=== PATIENT | female | born 1945 | race Caucasian/White ===

== ENCOUNTER 2017-04-04 21:15 | Emergency (ER) | payer OTHER, MEDICAID ==
[~2017-04-04] VITALS: Ht 172.7 cm; Wt 117.9 kg
--- NOTE | 2017-04-04 21:21 | NUR ---
Patient to ER bed 5 to gown for evaluation. Side rails up. Report given to Zane HOLT.
[2017-04-04 21:23] VITALS: BP_SYST 152
--- NOTE | 2017-04-04 21:36 | NUR ---
Patient AAOx4, non-ambulatory. Patient states she had a high systolic blood pressure "in 170s" prior to ER visit, also states having a headache with pain scale 5/10 and onset of nausea. Patient states pain in head is non-radiating and has a sharp sensation. Patient denies vision difficulties, denies vomiting at this time. Patient denies chest pain and SOB at this time. Patient denies any other complaints.
--- NOTE | 2017-04-04 21:36 | NUR ---
Reassigned to Sriram HOLT
[2017-04-04] MEDS ORDERED: KETOROLAC TROMETHAMINE 30 MG VIAL IVP ONE (21:45)
[2017-04-04] MEDS ORDERED: NACL 0.9% 1,000 ML IV ONE (21:45)
[2017-04-04] MEDS ORDERED: ONDANSETRON HCL 4 MG/2 ML VIAL IVP ONE (21:45)
--- NOTE | 2017-04-04 21:50 | NUR ---
DENNISE Benitez at bedside examining patient.
--- NOTE | 2017-04-04 22:08 | NUR ---
# 20 gauge angiocath placed to right hand. Use of asceptic technique. Blood return noted. Blood for lab drawn from site. Flushed with 10 cc of normal saline. No evidence of infiltration noted. Patient tolerated well.
--- NOTE | 2017-04-04 22:30 | NUR ---
Patient and famiy state they cannot remember the list of medications the patient takes at home. Will endorse medication reconcilition to other nurse if patient is admitted to hospital.
[2017-04-04 22:44] LABS: BILIRUBIN,URINE NEGATIVE (NEGATIVE); BLOOD, URINE 1+ (NEGATIVE); CLARITY/URINE CLEAR (CLEAR); COLOR,URINE YELLOW (YELLOW); GLUCOSE,URINE NEGATIVE (NEGATIVE); KETONES,URINE NEGATIVE (NEGATIVE); LEUKOCYTE ESTERASE ,URINE 3+ (NEGATIVE); NITRITE, URINE NEGATIVE (NEGATIVE); PROTEIN URINE NEGATIVE (NEGATIVE); UROBILINOGEN,URINE 0.2 (0.2-1.0)
[2017-04-04 22:52] LABS: BACTERIA,URINE MODERATE /HPF (None Seen); WBC,URINE 50-80 /HPF (0-3)
[2017-04-04] MEDS ORDERED: NITROFURANTOIN MONOHYD/M-CRYST 100 MG CAPSULE PO ONE (23:00)
[2017-04-04 23:07] LABS: EOSINOPHILS # (AUTO) 0.1 K/uL (0.0-0.4); HEMOGLOBIN 12.7 g/dL (12.0-16.0); MONOCYTES # (AUTO) 0.8 K/uL (0.0-1.0); RED BLOOD CELL COUNT(AUTO) 4.55 MIL/uL (4.2-6.2)
[2017-04-04 23:10] LABS: BASOPHILS # (AUTO) 0.1 K/uL (0.0-0.2); BASOPHILS % (AUTO) 1.4 % (0.0-2.0); EOSINOPHILS % (AUTO) 1.3 % (0.0-4.0); HEMATOCRIT 39.3 % (36-48); LYMPHOCYTES # (AUTO) 4.5 K/uL (1.0-5.5); LYMPHOCYTES % (AUTO) 58.4 % (20.5-51.5); MEAN CORPUSCULAR HEMOGLOBIN 28 pg (27-31); MEAN CORPUSCULAR HGB CONC 32 % (32-36); MEAN CORPUSCULAR VOLUME 86 fL (79.0-98.0); MONOCYTES % (AUTO) 10.4 % (1.7-9.3); NEUTROPHILS # (AUTO) 2.2 K/uL (1.8-7.7); NEUTROPHILS % (AUTO) 28.5 % (40.0-70.0); PLATELET COUNT (AUTO) 323 K/uL (130-430); RED CELL DISTRIBUTION WIDTH 12.9 % (9.0-15.0); WHITE BLOOD COUNT (AUTO) 7.7 K/uL (4.8-10.8)
[2017-04-04 23:19] LABS: ANION GAP 6 (5-15); CALCIUM 8.5 mg/dL (8.4-11.0); CHLORIDE 102 mmol/L (98-107); CREATININE 1.11 mg/dL (0.55-1.30); GLUCOSE 217 mg/dL (70-99); POTASSIUM 3.7 mmol/L (3.5-5.1); SODIUM SERUM 137 mmol/L (136-145); UREA NITROGEN, BLOOD 20 mg/dL (8-21)
--- NOTE | 2017-04-04 23:21 | NUR ---
Patient stable, resting in bed. No signs of distress noted. Vital signs within therapeutic range.
[2017-04-04 23:24] LABS: ALANINE AMINOTRANSFERASE 14 U/L (12-78); ALBUMIN 3.1 g/dL (3.4-4.8); ASPARTATE AMINOTRANSFERASE 14 U/L (10-37); TOTAL BILIRUBIN 0.2 mg/dL (0.0-1.0)
[2017-04-04 23:50] VITALS: BP_SYST 152
--- NOTE | 2017-04-04 23:50 | NUR ---
Patient given written and verbal discharge instructions and verbalizes understanding. ER MD discussed with patient the results and treatment provided. Patient in stable condition. ID arm band removed. IV catheter removed intact and dressing applied, no active bleeding. Rx of macrobid given. Patient educated on pain management and to follow up with PMD. Pain Scale 0/10. Opportunity for questions provided and answered.
== END 2017-04-04 23:50 | disposition home or self-care (01) ==
LOC: SED 21:15
DX: I10 Essential (primary) hypertension (principal); N39.0 Urinary tract infection, site not specified; R51 Headache; E11.9 Type 2 diabetes mellitus without complications; Z88.6 Allergy status to analgesic agent
CPT/HCPCS: 36415; 71010; 80053; 81000; 83880; 84484; 85025; 87086; 87186; 93005; 96361; 96374; 96375; 99285; J1885; J2405; J7030

== ENCOUNTER 2018-01-14 21:46 | Emergency (ER) | payer OTHER, MEDICAID ==
[~2018-01-14] VITALS: Ht 167.6 cm; Wt 117.9 kg
[2018-01-14 21:52] VITALS: BP_SYST 183
[2018-01-14] MEDS ORDERED: LISINOPRIL 10 MG TABLET (PRINIVIL) PO ONE (23:45)
[2018-01-14] MEDS ORDERED: ONDANSETRON 4 MG ODT TAB PO ONE (23:45)
[2018-01-14 23:46] LABS: BILIRUBIN,URINE NEGATIVE (NEGATIVE); BLOOD, URINE 1+ (NEGATIVE); CLARITY/URINE CLEAR (CLEAR); COLOR,URINE YELLOW (YELLOW); GLUCOSE,URINE NEGATIVE (NEGATIVE); KETONES,URINE NEGATIVE (NEGATIVE); LEUKOCYTE ESTERASE ,URINE 1+ (NEGATIVE); NITRITE, URINE NEGATIVE (NEGATIVE); PH,URINE 7.5 (5.0-8.0); PROTEIN URINE 2+ (NEGATIVE); UROBILINOGEN,URINE 0.2 (0.2-1.0)
[2018-01-14 23:48] LABS: BASOPHILS # (AUTO) 0.1 K/uL (0.0-0.2); BASOPHILS % (AUTO) 1.6 % (0.0-2.0); EOSINOPHILS # (AUTO) 0.1 K/uL (0.0-0.4); EOSINOPHILS % (AUTO) 0.9 % (0.0-4.0); HEMATOCRIT 38.1 % (36-48); HEMOGLOBIN 12.7 g/dL (12.0-16.0); LYMPHOCYTES # (AUTO) 2.6 K/uL (1.0-5.5); LYMPHOCYTES % (AUTO) 36.8 % (20.5-51.5); MEAN CORPUSCULAR HEMOGLOBIN 29 pg (27-31); MEAN CORPUSCULAR HGB CONC 33 % (32-36); MEAN CORPUSCULAR VOLUME 85 fL (79.0-98.0); MONOCYTES # (AUTO) 0.5 K/uL (0.0-1.0); MONOCYTES % (AUTO) 6.9 % (1.7-9.3); NEUTROPHILS # (AUTO) 3.8 K/uL (1.8-7.7); NEUTROPHILS % (AUTO) 53.8 % (40.0-70.0); PLATELET COUNT (AUTO) 390 K/uL (130-430); RED BLOOD CELL COUNT(AUTO) 4.47 MIL/uL (4.2-6.2); RED CELL DISTRIBUTION WIDTH 13.4 % (9.0-15.0); WHITE BLOOD COUNT (AUTO) 7.1 K/uL (4.8-10.8)
[2018-01-14 23:52] LABS: ANION GAP 5 (5-15); CALCIUM 8.7 mg/dL (8.4-11.0); CHLORIDE 101 mmol/L (98-107); CREATININE 0.81 mg/dL (0.55-1.30); GLUCOSE 112 mg/dL (70-99); SODIUM SERUM 135 mmol/L (136-145); UREA NITROGEN, BLOOD 20 mg/dL (8-21)
[2018-01-14 23:57] LABS: ALANINE AMINOTRANSFERASE 13 U/L (12-78); ALBUMIN 3.2 g/dL (3.4-4.8); ASPARTATE AMINOTRANSFERASE 17 U/L (10-37); TOTAL BILIRUBIN 0.2 mg/dL (0.0-1.0)
[2018-01-15 00:05] LABS: BACTERIA,URINE MODERATE /HPF (None Seen)
[2018-01-15 00:05] LABS: PROTHROMBIN TIME 10.2 SECS (9.5-12.5)
[2018-01-15 00:06] LABS: URINE AMORPHOUS PHOSPHATES 1+ /HPF (None Seen)
[2018-01-15 01:03] VITALS: BP_SYST 144
== END 2018-01-15 01:03 | disposition home or self-care (01) ==
LOC: SED 21:46
DX: N39.0 Urinary tract infection, site not specified (principal); R11.2 Nausea with vomiting, unspecified; I10 Essential (primary) hypertension; R51 Headache; E11.9 Type 2 diabetes mellitus without complications; R42 Dizziness and giddiness; M19.90 Unspecified osteoarthritis, unspecified site
CPT/HCPCS: 36415; 71045; 80053; 81000; 83880; 84484; 85025; 85610; 85730; 87086; 93005; 99285; Q0162

== ENCOUNTER 2018-05-19 19:20 | Inpatient (IN) | payer OTHER, MEDICAID ==
[~2018-05-19] VITALS: Ht 165.1 cm; Wt 103.9 kg
[2018-05-19 19:25] VITALS: BP_SYST 157
[2018-05-19 20:50] LABS: BILIRUBIN,URINE NEGATIVE (NEGATIVE); BLOOD, URINE 2+ (NEGATIVE); CLARITY/URINE CLEAR (CLEAR); COLOR,URINE YELLOW (YELLOW); GLUCOSE,URINE NEGATIVE (NEGATIVE); KETONES,URINE NEGATIVE (NEGATIVE); LEUKOCYTE ESTERASE ,URINE 1+ (NEGATIVE); NITRITE, URINE NEGATIVE (NEGATIVE); PROTEIN URINE 1+ (NEGATIVE); UROBILINOGEN,URINE 0.2 (0.2-1.0)
[2018-05-19 20:51] LABS: BASOPHILS # (AUTO) 0.2 K/uL (0.0-0.2); BASOPHILS % (AUTO) 2.2 % (0.0-2.0); EOSINOPHILS % (AUTO) 0.2 % (0.0-4.0); HEMATOCRIT 38.2 % (36-48); HEMOGLOBIN 12.7 g/dL (12.0-16.0); LYMPHOCYTES # (AUTO) 2.4 K/uL (1.0-5.5); LYMPHOCYTES % (AUTO) 22.6 % (20.5-51.5); MEAN CORPUSCULAR HEMOGLOBIN 27 pg (27-31); MEAN CORPUSCULAR HGB CONC 33 % (32-36); MEAN CORPUSCULAR VOLUME 82 fL (79.0-98.0); MONOCYTES # (AUTO) 1.2 K/uL (0.0-1.0); MONOCYTES % (AUTO) 11.4 % (1.7-9.3); NEUTROPHILS # (AUTO) 6.6 K/uL (1.8-7.7); NEUTROPHILS % (AUTO) 63.6 % (40.0-70.0); PLATELET COUNT (AUTO) 379 K/uL (130-430); RED BLOOD CELL COUNT(AUTO) 4.64 MIL/uL (4.2-6.2); RED CELL DISTRIBUTION WIDTH 13.1 % (9.0-15.0); WHITE BLOOD COUNT (AUTO) 10.4 K/uL (4.8-10.8)
[2018-05-19 21:07] LABS: BACTERIA,URINE FEW /HPF (None Seen); WBC,URINE 20-50 /HPF (0-3)
[2018-05-19 21:09] LABS: ALANINE AMINOTRANSFERASE 9 U/L (12-78); ALBUMIN 2.9 g/dL (3.4-4.8); ANION GAP 8 (5-15); ASPARTATE AMINOTRANSFERASE 16 U/L (10-37); CALCIUM 8.2 mg/dL (8.4-11.0); CHLORIDE 100 mmol/L (98-107); CREATININE 1.36 mg/dL (0.55-1.30); GLUCOSE 162 mg/dL (70-99); LIPASE 54 U/L (73-393); SODIUM SERUM 137 mmol/L (136-145); TOTAL BILIRUBIN 0.4 mg/dL (0.0-1.0); UREA NITROGEN, BLOOD 26 mg/dL (8-21)
[2018-05-19] MEDS ORDERED: KETOROLAC TROMETHAMINE 30 MG VIAL IVP ONE (22:00)
[2018-05-19] MEDS ORDERED: MORPHINE 4 MG/ML INJ. SYRINGE IVP ONE (22:00)
[2018-05-19] MEDS ORDERED: methylPREDNISolone SOD SUCC/PF 62.5 MG/ML VIAL IVP ONE (22:00)
[2018-05-19] MEDS ORDERED: NACL 0.9% 1,000 ML IV ONE (22:00)
[2018-05-19] MEDS ORDERED: cefTRIAXone 1 GM IVPB PREMIX 50 ML IV ONE (22:00)
[2018-05-19 23:27] VITALS: BP_SYST 158
[2018-05-20] VITALS: BP_SYST 160
[2018-05-20] MEDS ORDERED: LEVOFLOXACIN 500 MG/D5W 100 ML IV ONE ×2 (02:40→03:00)
[2018-05-20] MEDS: 0.45% NACL 1,000 ML IV SCH ×4 (02:46→21:01)
[2018-05-20] MEDS: INSULIN REGULAR, HUMAN 100 UNITS/ML, 10 ML VIAL (novoLIN R) SUBCUT PRN ×4 (06:37→22:22)
[2018-05-20 08:00] VITALS: BP_SYST 164
[2018-05-20] MEDS: METOPROLOL SUCCINATE 25 MG TAB.SR.24H (TOPROL XL) PO SCH ×2 (08:20→21:03)
[2018-05-20 12:00] VITALS: BP_SYST 155
[2018-05-20] MEDS ORDERED: PANTOPRAZOLE SODIUM 40 MG TAB PO ONE (13:45)
[2018-05-20] MEDS ORDERED: ONDANSETRON HCL 4 MG/2 ML VIAL IVP PRN (13:45)
[2018-05-20] MEDS ORDERED: cloNIDine HCL 0.2 MG TABLET PO PRN (13:45)
[2018-05-20] MEDS ORDERED: ZOLPIDEM TARTRATE 5 MG TABLET PO PRN (13:45)
[2018-05-20] MEDS ORDERED: DICLOFENAC SODIUM 25 MG TABLET.DR PO ONE (14:00)
[2018-05-20] MEDS ORDERED: GENTAMICIN 100 mg/50 mL NS 50 ML IV ONE (15:30)
[2018-05-20 16:23] VITALS: BP_SYST 164
[2018-05-20] MEDS: INSULIN NPH 100 UNITS/ML 10 ML VIAL SUBCUT SCH (18:20)
[2018-05-20 19:11] VITALS: BP_SYST 160
[2018-05-20 20:15] VITALS: BP_SYST 154
[2018-05-20] MEDS ORDERED: cefTRIAXone 1 GM IVPB PREMIX 50 ML IV SCH (21:00)
[2018-05-20] MEDS: DICLOFENAC SODIUM 25 MG TABLET.DR PO SCH (21:02)
[2018-05-21] VITALS (7 sets, daily range): BP systolic 112–186
[2018-05-21] MEDS: INSULIN NPH 100 UNITS/ML 10 ML VIAL SUBCUT SCH ×2 (06:13→17:07)
[2018-05-21 06:52] LABS: INR 1.1 (0.8-1.2); PROTHROMBIN TIME 10.9 SECS (9.5-12.5)
[2018-05-21 06:54] LABS: ANION GAP 7 (5-15); CALCIUM 8.5 mg/dL (8.4-11.0); CHLORIDE 105 mmol/L (98-107); GLUCOSE 144 mg/dL (70-99); POTASSIUM 3.7 mmol/L (3.5-5.1); SODIUM SERUM 139 mmol/L (136-145); UREA NITROGEN, BLOOD 28 mg/dL (8-21)
[2018-05-21 08:15] LABS: BASOPHILS # (AUTO) 0.1 K/uL (0.0-0.2); BASOPHILS % (AUTO) 0.7 % (0.0-2.0); EOSINOPHILS % (AUTO) 0.4 % (0.0-4.0); HEMOGLOBIN 11.9 g/dL (12.0-16.0); LYMPHOCYTES # (AUTO) 3.8 K/uL (1.0-5.5); LYMPHOCYTES % (AUTO) 31.1 % (20.5-51.5); MEAN CORPUSCULAR HEMOGLOBIN 27 pg (27-31); MEAN CORPUSCULAR HGB CONC 32 % (32-36); MEAN CORPUSCULAR VOLUME 84 fL (79.0-98.0); MONOCYTES # (AUTO) 1.2 K/uL (0.0-1.0); MONOCYTES % (AUTO) 9.7 % (1.7-9.3); NEUTROPHILS % (AUTO) 58.1 % (40.0-70.0); PLATELET COUNT (AUTO) 378 K/uL (130-430); RED BLOOD CELL COUNT(AUTO) 4.41 MIL/uL (4.2-6.2); RED CELL DISTRIBUTION WIDTH 13.3 % (9.0-15.0); WHITE BLOOD COUNT (AUTO) 12.1 K/uL (4.8-10.8)
[2018-05-21] MEDS: METOPROLOL SUCCINATE 25 MG TAB.SR.24H (TOPROL XL) PO SCH ×2 (08:34→20:17)
[2018-05-21] MEDS: PANTOPRAZOLE SODIUM 40 MG TAB PO SCH (09:00)
[2018-05-21] MEDS: DICLOFENAC SODIUM 25 MG TABLET.DR PO SCH ×2 (09:00→20:16)
[2018-05-21] MEDS ORDERED: IOHEXOL 0 ML IV ONE (11:33)
[2018-05-21] MEDS ORDERED: ONDANSETRON HCL 4 MG/2 ML VIAL IVP PRN (12:30)
[2018-05-21] MEDS ORDERED: fentaNYL CITRATE/PF 100 MCG/2 ML AMP IVP PRN ×2 (12:30)
[2018-05-21] MEDS: cloNIDine HCL 0.1 MG TABLET PO PRN ×2 (13:54→16:59)
[2018-05-21] MEDS: PIPERACILLIN/TAZO 4.5GM/DEX-IS 100 ML IV SCH ×2 (15:15→21:02)
[2018-05-21] MEDS: 0.45% NACL 1,000 ML IV SCH (15:16)
[2018-05-21] MEDS: INSULIN REGULAR, HUMAN 100 UNITS/ML, 10 ML VIAL (novoLIN R) SUBCUT PRN ×2 (17:06→21:10)
[2018-05-22] VITALS: BP_SYST 156
[2018-05-22] MEDS: traMADol HCL HCL 50 MG TABLET (ULTRAM) PO PRN ×3 (04:46→22:05)
[2018-05-22] MEDS: PIPERACILLIN/TAZO 4.5GM/DEX-IS 100 ML IV SCH (06:28)
[2018-05-22] MEDS: 0.45% NACL 1,000 ML IV SCH ×2 (06:28→10:51)
[2018-05-22] MEDS: INSULIN REGULAR, HUMAN 100 UNITS/ML, 10 ML VIAL (novoLIN R) SUBCUT PRN ×4 (06:38→21:49)
[2018-05-22] MEDS: INSULIN NPH 100 UNITS/ML 10 ML VIAL SUBCUT SCH ×2 (07:02→17:44)
[2018-05-22 07:20] LABS: BASOPHILS # (AUTO) 0.2 K/uL (0.0-0.2); BASOPHILS % (AUTO) 2.1 % (0.0-2.0); EOSINOPHILS # (AUTO) 0.3 K/uL (0.0-0.4); EOSINOPHILS % (AUTO) 3.6 % (0.0-4.0); HEMATOCRIT 37.7 % (36-48); HEMOGLOBIN 12.4 g/dL (12.0-16.0); LYMPHOCYTES # (AUTO) 2.9 K/uL (1.0-5.5); LYMPHOCYTES % (AUTO) 39.2 % (20.5-51.5); MEAN CORPUSCULAR HEMOGLOBIN 28 pg (27-31); MEAN CORPUSCULAR HGB CONC 33 % (32-36); MEAN CORPUSCULAR VOLUME 84 fL (79.0-98.0); MONOCYTES # (AUTO) 0.9 K/uL (0.0-1.0); MONOCYTES % (AUTO) 12.6 % (1.7-9.3); NEUTROPHILS # (AUTO) 3.2 K/uL (1.8-7.7); NEUTROPHILS % (AUTO) 42.5 % (40.0-70.0); PLATELET COUNT (AUTO) 369 K/uL (130-430); RED BLOOD CELL COUNT(AUTO) 4.48 MIL/uL (4.2-6.2); RED CELL DISTRIBUTION WIDTH 13.3 % (9.0-15.0); WHITE BLOOD COUNT (AUTO) 7.5 K/uL (4.8-10.8)
[2018-05-22 08:06] LABS: ANION GAP 10 (5-15); CALCIUM 8.8 mg/dL (8.4-11.0); CHLORIDE 106 mmol/L (98-107); CREATININE 1.09 mg/dL (0.55-1.30); GLUCOSE 175 mg/dL (70-99); POTASSIUM 3.8 mmol/L (3.5-5.1); SODIUM SERUM 142 mmol/L (136-145); UREA NITROGEN, BLOOD 21 mg/dL (8-21)
[2018-05-22 08:12] LABS: ALANINE AMINOTRANSFERASE 11 U/L (12-78); ALBUMIN 2.3 g/dL (3.4-4.8); ASPARTATE AMINOTRANSFERASE 20 U/L (10-37); TOTAL BILIRUBIN 0.3 mg/dL (0.0-1.0)
[2018-05-22 08:32] VITALS: BP_SYST 142
[2018-05-22] MEDS: PANTOPRAZOLE SODIUM 40 MG TAB PO SCH (09:47)
[2018-05-22] MEDS: DICLOFENAC SODIUM 25 MG TABLET.DR PO SCH ×2 (09:48→21:40)
[2018-05-22] MEDS: METOPROLOL SUCCINATE 25 MG TAB.SR.24H (TOPROL XL) PO SCH ×2 (09:50→21:39)
[2018-05-22 12:30] VITALS: BP_SYST 145
[2018-05-22] MEDS: cefTRIAXone 1 GM IVPB PREMIX 50 ML IV SCH (14:54)
[2018-05-22 16:32] VITALS: BP_SYST 140
[2018-05-22 19:48] VITALS: BP_SYST 137
[2018-05-22 20:25] VITALS: BP_SYST 156
[2018-05-22] MEDS ORDERED: ENOXAPARIN SODIUM 40 MG/0.4 ML SYRINGE SUBCUT SCH (21:00)
[2018-05-23 00:42] VITALS: BP_SYST 136
[2018-05-23] MEDS: INSULIN NPH 100 UNITS/ML 10 ML VIAL SUBCUT SCH (06:28)
[2018-05-23] MEDS: METOPROLOL SUCCINATE 25 MG TAB.SR.24H (TOPROL XL) PO SCH (10:00)
[2018-05-23] MEDS: DICLOFENAC SODIUM 25 MG TABLET.DR PO SCH (10:00)
[2018-05-23] MEDS: PANTOPRAZOLE SODIUM 40 MG TAB PO SCH (10:00)
[2018-05-23] MEDS ORDERED: MIDAZOLAM HCL 5 MG/5 ML VIAL IVP ONE (11:30)
[2018-05-23] MEDS ORDERED: ceFAZolin SODIUM 1 GM VIAL IV ONE (11:30)
[2018-05-23] MEDS ORDERED: WATER FOR IRRIGATION,STERILE 4,000 ML IRRIG.SOLN IR ONE (11:30)
[2018-05-23] MEDS ORDERED: NS 1000 ML IV.SOLN IV ONE (11:30)
[2018-05-23] MEDS ORDERED: PROPOFOL 200MG/ 20ML VIAL (DIPRIVAN) IV ONE (11:30)
[2018-05-23 12:02] VITALS: BP_SYST 149
[2018-05-23] MEDS: INSULIN REGULAR, HUMAN 100 UNITS/ML, 10 ML VIAL (novoLIN R) SUBCUT PRN (12:08)
[2018-05-23] MEDS: cefTRIAXone 1 GM IVPB PREMIX 50 ML IV SCH ×2 (12:10→13:21)
[2018-05-23] MEDS ORDERED: cefTRIAXone 1 GM IVPB PREMIX 50 ML IV ONE ×2 (14:15)
[2018-05-23] MEDS ORDERED: ROCPM1 IV (14:30)
[2018-05-23 14:47] VITALS: BP_SYST 149
[2018-05-23 16:02] VITALS: BP_SYST 173
[2018-05-23 16:11] VITALS: BP_SYST 149; BP_SYST 186
[2018-05-23] MEDS: cloNIDine HCL 0.1 MG TABLET PO PRN (16:49)
[2018-05-24] MEDS ORDERED: cefTRIAXone 2 GM in D5W 50 ML IV SCH (15:00)
== END 2018-05-23 17:10 | disposition home health service (06) | DRG 853 ==
LOC: SED 19:20 → SMU 22:32
PROVIDERS: ADMIT Internal Medicine; ATTEND Internal Medicine
PROC: 0T778DZ Dilation of Left Ureter with Intraluminal Device, Via Natural or Artificial Opening Endoscopic (ICD-10-PCS; 2018-05-19)
PROC: 05HY33Z Insertion of Infusion Device into Upper Vein, Percutaneous Approach (ICD-10-PCS; principal; 2018-05-23)
DX: A41.9 Sepsis, unspecified organism (principal); N17.0 Acute kidney failure with tubular necrosis; N13.6 Pyonephrosis; E11.9 Type 2 diabetes mellitus without complications; I10 Essential (primary) hypertension; M19.90 Unspecified osteoarthritis, unspecified site; E86.0 Dehydration; E66.01 Morbid (severe) obesity due to excess calories; B96.4 Proteus (mirabilis) (morganii) as the cause of diseases classified elsewhere; Z91.048 Other nonmedicinal substance allergy status; Z68.38 Body mass index [BMI] 38.0-38.9, adult; Z88.1 Allergy status to other antibiotic agents; Z90.710 Acquired absence of both cervix and uterus
CPT/HCPCS: 36415; 71045; 76000; 80048; 80053; 81000-TC; 82962; 83690-TC; 84484; 85025; 85610-TC; 87040-TC; 87081; 87086; 87186-TC; 93005; 96365; 96375; 99285; C1751; C1769; C2625; J0690; J0696; J1580; J1650; J1815; J1885; J1956; J2250; J2405; J2543; J2704; J2930; J7030; J7060; Q9967

== ENCOUNTER 2018-08-14 16:52 | Outpatient (CLI) | payer OTHER, MEDICAID ==
[~2018-08-14 16:52] MED LIST: ROCPM1 IV
[2018-08-14 19:48] LABS: POTASSIUM 3.3 mmol/L (3.5-5.1); SODIUM SERUM 143 mmol/L (136-145)
[2018-08-14 19:49] LABS: ANION GAP 5 (5-15); CALCIUM 8.7 mg/dL (8.4-11.0); CHLORIDE 105 mmol/L (98-107); CREATININE 1.01 mg/dL (0.55-1.30); GLUCOSE 112 mg/dL (70-99); UREA NITROGEN, BLOOD 28 mg/dL (8-21)
[2018-08-14 19:50] LABS: URIC ACID 4.1 mg/dL (2.4-7.0)
== END 2018-08-14 23:30 | disposition home or self-care (01) ==
LOC: SLB 16:52
PROVIDERS: ATTEND Urology
DX: N20.1 Calculus of ureter (principal)
CPT/HCPCS: 36415; 80048; 83970; 84550-TC

== ENCOUNTER 2018-08-17 15:09 | Outpatient (CLI) | payer OTHER, MEDICAID ==
[2018-08-17 21:17] LABS: CREATININE,URINE 34.6 MG/DL (30-125)
== END 2018-08-17 21:21 | disposition home or self-care (01) ==
LOC: SLB 15:09
PROVIDERS: ATTEND Urology
DX: N20.1 Calculus of ureter (principal)
CPT/HCPCS: 36415; 82340; 82570; 84560

== ENCOUNTER 2019-08-19 19:39 | Emergency (ER) | payer OTHER, MEDICAID ==
[~2019-08-19] VITALS: Ht 157.5 cm; Wt 117.9 kg
[2019-08-19 19:44] VITALS: BP_SYST 162
[2019-08-19 21:50] LABS: BASOPHILS # (AUTO) 0.1 K/uL (0.0-0.2); EOSINOPHILS # (AUTO) 0.1 K/uL (0.0-0.4); EOSINOPHILS % (AUTO) 1.1 % (0.0-4.0); HEMATOCRIT 34.9 % (36-48); HEMOGLOBIN 11.5 g/dL (12.0-16.0); LYMPHOCYTES # (AUTO) 2.6 K/uL (1.0-5.5); LYMPHOCYTES % (AUTO) 27.3 % (20.5-51.5); MEAN CORPUSCULAR HEMOGLOBIN 27 pg (27-31); MEAN CORPUSCULAR HGB CONC 33 % (32-36); MEAN CORPUSCULAR VOLUME 82 fL (79.0-98.0); MONOCYTES # (AUTO) 1.3 K/uL (0.0-1.0); MONOCYTES % (AUTO) 13.5 % (1.7-9.3); NEUTROPHILS # (AUTO) 5.4 K/uL (1.8-7.7); NEUTROPHILS % (AUTO) 57.1 % (40.0-70.0); PLATELET COUNT (AUTO) 467 K/uL (130-430); RED BLOOD CELL COUNT(AUTO) 4.23 MIL/uL (4.2-6.2); RED CELL DISTRIBUTION WIDTH 14.5 % (9.0-15.0); WHITE BLOOD COUNT (AUTO) 9.4 K/uL (4.8-10.8)
[2019-08-19 22:25] LABS: ANION GAP 9 (5-15); CALCIUM 8.7 mg/dL (8.4-11.0); CHLORIDE 99 mmol/L (98-107); GLUCOSE 371 mg/dL (70-99); POTASSIUM 4.3 mmol/L (3.5-5.1); SODIUM SERUM 133 mmol/L (136-145); UREA NITROGEN, BLOOD 19 mg/dL (8-21)
[2019-08-19 22:30] LABS: ALANINE AMINOTRANSFERASE 18 U/L (12-78); ALBUMIN 2.3 g/dL (3.4-4.8); ASPARTATE AMINOTRANSFERASE 13 U/L (10-37); TOTAL BILIRUBIN 0.2 mg/dL (0.0-1.0)
[2019-08-19 22:42] LABS: C-REACTIVE PROTEIN QUANT < 0.2 mg/dL (0-0.5)
[2019-08-19] MEDS ORDERED: KETOROLAC TROMETHAMINE 15 MG VIAL IVP ONE (23:15)
[2019-08-19] MEDS ORDERED: IOHEXOL 350 mgI/mL, 150 ML INFUS..BTL IV ONE (23:26)
[2019-08-19] MEDS ORDERED: METO-442 PO (23:31)
[2019-08-19] MEDS ORDERED: FURO40TA5 PO (23:31)
[2019-08-19] MEDS ORDERED: LOSA100T3 PO (23:31)
[2019-08-19] MEDS ORDERED: OMEP40CA33 PO (23:31)
[2019-08-19] MEDS ORDERED: PROR4 PO (23:31)
[2019-08-19] MEDS ORDERED: ALEN70TA3 PO (23:31)
[2019-08-19] MEDS ORDERED: GABA-531 PO (23:31)
[2019-08-19] MEDS ORDERED: POTA8CAP20 PO (23:31)
[2019-08-19] MEDS ORDERED: ALBMDI INH (23:31)
[2019-08-19] MEDS ORDERED: SIMV10TA6 PO (23:31)
[2019-08-20 01:10] VITALS: BP_SYST 162
== END 2019-08-20 01:10 | disposition home or self-care (01) ==
LOC: SED 19:39
DX: J06.9 Acute upper respiratory infection, unspecified (principal); R06.02 Shortness of breath; N20.0 Calculus of kidney; L92.8 Other granulomatous disorders of the skin and subcutaneous tissue; E11.9 Type 2 diabetes mellitus without complications; I10 Essential (primary) hypertension; Z88.6 Allergy status to analgesic agent; Z79.899 Other long term (current) drug therapy
CPT/HCPCS: 36415; 71045; 71275; 80053; 84145; 85025; 85379; 86140; 96374; 99285; J1885; Q9967